=== PATIENT | female | born 1985 | race Caucasian/White ===

== ENCOUNTER 2025-06-19 11:11 | Outpatient (CLI) | payer BC, SELFPAY | END 2025-06-19 11:12 | disposition home or self-care (01) | PROVIDERS: PCP Nurse Practitioner Family; Visit Provider Nurse Practitioner Family | DX: Z00.00 Encounter for general adult medical examination without abnormal findings (principal); E78.5 Hyperlipidemia, unspecified; I10 Essential (primary) hypertension; Z13.0 Encounter for screening for diseases of the blood and blood-forming organs and certain disorders involving the immune mechanism | CPT/HCPCS: 80053; 80061; 85025 ==